=== PATIENT | male | born 1970 | race Caucasian/White ===

== ENCOUNTER 2021-06-06 22:11 | Emergency (ER) | payer OTHER ==
--- NOTE | 2021-06-06 22:53 | ED ---
General Adult HPI - General Chief complaint: Recheck/Abnormal Lab/Rx Stated complaint: Vomiting blood x 4 days Time Seen by Provider: 06/06/21 22:25 Source: patient, family Mode of arrival: wheelchair Limitations: no limitations - History of Present Illness Initial comments: This patient is a 51-year-old man who presents to have evaluation after he had episode of vomiting with some blood. The patient states that he had been out drinking with his son and then had some vomiting. He states that his had him come to the hospital because they noticed some blood. The patient is denying pain area no abdominal or chest pain. No dyspnea. -: hour(s) Severity scale (1-10): 0 Improves with: none Worsens with: none Associated Symptoms: nausea/vomiting Treatments Prior to Arrival: none - Related Data Home Medications Medication Instructions Recorded Confirmed Aspirin EC [Ecotrin Low Dose] 81 mg PO DAILY 06/06/21 06/06/21 Naproxen 500 mg PO BID PRN 06/06/21 06/06/21 Nitroglycerin Sl Tabs [Nitrostat] 0.4 mg PO Q5M PRN 06/06/21 06/06/21 Allergies Allergy/AdvReac Type Severity Reaction Status Date / Time egg Allergy Anaphylaxis Verified 06/06/21 23:27 Review of Systems ROS Statement: Those systems with pertinent positive or pertinent negative responses have been documented in the HPI. ROS Other: All systems not noted in ROS Statement are negative. Constitutional: Denies: fever, chills Respiratory: Denies: cough, dyspnea Cardiovascular: Denies: chest pain, palpitations Gastrointestinal: Reports: nausea, vomiting, hematemesis. Denies: abdominal pain, diarrhea, melena, hematochezia Genitourinary: Denies: dysuria, hematuria Musculoskeletal: Denies: back pain Skin: Denies: rash Neurological: Denies: headache, weakness, numbness Past Medical History Past Medical History: Coronary Artery Disease (CAD) History of Any Multi-Drug Resistant Organisms: None Reported Past Surgical History: Heart Catheterization With Stent Past Psychological History: No Psychological Hx Reported Smoking Status: Current every day smoker Past Alcohol Use History: Occasional Past Drug Use History: None Reported General Exam Limitations: no limitations General appearance: alert, in no apparent distress Head exam: Present: atraumatic, normocephalic Eye exam: Present: normal appearance. Absent: scleral icterus, conjunctival injection ENT exam: Present: normal oropharynx Neck exam: Present: normal inspection Respiratory exam: Present: normal lung sounds bilaterally, rhonchi. Absent: respiratory distress, wheezes, rales, stridor Cardiovascular Exam: Present: regular rate, normal rhythm, normal heart sounds. Absent: systolic murmur, diastolic murmur, rubs, gallop GI/Abdominal exam: Present: soft. Absent: distended, tenderness, guarding, rebound, rigid, mass, pulsatile mass, hernia Extremities exam: Present: normal inspection, normal capillary refill. Absent: pedal edema, calf tenderness Back exam: Present: normal inspection. Absent: CVA tenderness (R), CVA tenderness (L) Neurological exam: Present: alert Skin exam: Present: warm, dry, intact, normal color. Absent: rash Course Vital Signs 06/06/21 06/07/21 06/07/21 22:19 00:00 01:00 Temperature 98.9 F Pulse Rate 97 75 77 Respiratory 19 18 18 Rate Blood Pressure 119/83 94/71 98/68 O2 Sat by Pulse 95 94 L 94 L Oximetry 06/07/21 06/07/21 06/07/21 03:01 05:06 05:46 Temperature Pulse Rate 87 81 95 Respiratory 20 20 20 Rate Blood Pressure 93/64 85/58 102/71 O2 Sat by Pulse 96 95 98 Oximetry 06/07/21 08:04 Temperature 97.8 F Pulse Rate 73 Respiratory 20 Rate Blood Pressure 109/83 O2 Sat by Pulse 100 Oximetry EKG Findings - EKG Comments: EKG Findings:: Possible old lateral infarct. - EKG Results: EKG: interpreted by CASTILLOD, sinus rhythm (Rate 111 bpm) EKG shows: tachycardia - Blocks, [place], Hypertrophy, ST Abn: Chamber hypertrophy or enlargement: left ventricular hypertrophy or enlargement (LVE) Medical Decision Making - Lab Data Result diagrams: 06/06/21 23:02 06/06/21 23:02 Lab Results 06/06/21 06/06/21 06/06/21 Range/Units 22:55 23:00 23:02 WBC 9.9 (3.8-10.6) k/uL RBC 4.99 (4.30-5.90) m/uL Hgb 16.3 (13.0-17.5) gm/dL Hct 49.1 (39.0-53.0) % MCV 98.3 (80.0-100.0) fL MCH 32.7 (25.0-35.0) pg MCHC 33.2 (31.0-37.0) g/dL RDW 11.9 (11.5-15.5) % Plt Count 322 (150-450) k/uL MPV 8.1 Neutrophils % 61 % Lymphocytes % 27 % Monocytes % 6 % Eosinophils % 3 % Basophils % 1 % Neutrophils # 6.1 (1.3-7.7) k/uL Lymphocytes # 2.7 (1.0-4.8) k/uL Monocytes # 0.6 (0-1.0) k/uL Eosinophils # 0.3 (0-0.7) k/uL Basophils # 0.1 (0-0.2) k/uL PT (9.0-12.0) sec INR (<1.2) APTT (22.0-30.0) sec Sodium (137-145) mmol/L Potassium (3.5-5.1) mmol/L Chloride (98-107) mmol/L Carbon Dioxide (22-30) mmol/L Anion Gap mmol/L BUN (9-20) mg/dL Creatinine (0.66-1.25) mg/dL Est GFR (CKD-EPI)AfAm (>60 ml/min/1.73 sqM) Est GFR (CKD-EPI)NonAf (>60 ml/min/1.73 sqM) Glucose (74-99) mg/dL Calcium (8.4-10.2) mg/dL Total Bilirubin (0.2-1.3) mg/dL AST (17-59) U/L ALT (4-49) U/L Alkaline Phosphatase (38-126) U/L Troponin I (0.000-0.034) ng/mL Total Protein (6.3-8.2) g/dL Albumin (3.5-5.0) g/dL Serum Alcohol mg/dL Blood Type B Positive Blood Type Confirm B Positive Blood Type Recheck Bld Type Recheck Status Antibody Screen NEGATIVE Spec Expiration Date 06/06/21 06/06/21 06/06/21 Range/Units 23:02 23:02 23:02 WBC (3.8-10.6) k/uL RBC (4.30-5.90) m/uL Hgb (13.0-17.5) gm/dL Hct (39.0-53.0) % MCV (80.0-100.0) fL MCH (25.0-35.0) pg MCHC (31.0-37.0) g/dL RDW (11.5-15.5) % Plt Count (150-450) k/uL MPV Neutrophils % % Lymphocytes % % Monocytes % % Eosinophils % % Basophils % % Neutrophils # (1.3-7.7) k/uL Lymphocytes # (1.0-4.8) k/uL Monocytes # (0-1.0) k/uL Eosinophils # (0-0.7) k/uL Basophils # (0-0.2) k/uL PT 10.2 (9.0-12.0) sec INR 0.9 (<1.2) APTT 22.3 (22.0-30.0) sec Sodium 140 (137-145) mmol/L Potassium 4.2 (3.5-5.1) mmol/L Chloride 107 (98-107) mmol/L Carbon Dioxide 16 L (22-30) mmol/L Anion Gap 17 mmol/L BUN 10 (9-20) mg/dL Creatinine 0.86 (0.66-1.25) mg/dL Est GFR (CKD-EPI)AfAm >90 (>60 ml/min/1.73 sqM) Est GFR (CKD-EPI)NonAf >90 (>60 ml/min/1.73 sqM) Glucose 108 H (74-99) mg/dL Calcium 8.8 (8.4-10.2) mg/dL Total Bilirubin 0.4 (0.2-1.3) mg/dL AST 29 (17-59) U/L ALT 24 (4-49) U/L Alkaline Phosphatase 108 (38-126) U/L Troponin I <0.012 (0.000-0.034) ng/mL Total Protein 8.4 H (6.3-8.2) g/dL Albumin 4.6 (3.5-5.0) g/dL Serum Alcohol 290 H* mg/dL Blood Type Blood Type Confirm Blood Type Recheck Bld Type Recheck Status Antibody Screen Spec Expiration Date 06/06/21 Range/Units 23:02 WBC (3.8-10.6) k/uL RBC (4.30-5.90) m/uL Hgb (13.0-17.5) gm/dL Hct (39.0-53.0) % MCV (80.0-100.0) fL MCH (25.0-35.0) pg MCHC (31.0-37.0) g/dL RDW (11.5-15.5) % Plt Count (150-450) k/uL MPV Neutrophils % % Lymphocytes % % Monocytes % % Eosinophils % % Basophils % % Neutrophils # (1.3-7.7) k/uL Lymphocytes # (1.0-4.8) k/uL Monocytes # (0-1.0) k/uL Eosinophils # (0-0.7) k/uL Basophils # (0-0.2) k/uL PT (9.0-12.0) sec INR (<1.2) APTT (22.0-30.0) sec Sodium (137-145) mmol/L Potassium (3.5-5.1) mmol/L Chloride (98-107) mmol/L Carbon Dioxide (22-30) mmol/L Anion Gap mmol/L BUN (9-20) mg/dL Creatinine (0.66-1.25) mg/dL Est GFR (CKD-EPI)AfAm (>60 ml/min/1.73 sqM) Est GFR (CKD-EPI)NonAf (>60 ml/min/1.73 sqM) Glucose (74-99) mg/dL Calcium (8.4-10.2) mg/dL Total Bilirubin (0.2-1.3) mg/dL AST (17-59) U/L ALT (4-49) U/L Alkaline Phosphatase (38-126) U/L Troponin I (0.000-0.034) ng/mL Total Protein (6.3-8.2) g/dL Albumin (3.5-5.0) g/dL Serum Alcohol mg/dL Blood Type Blood Type Confirm Blood Type Recheck No Previous Record Bld Type Recheck Status CABO Indicated Antibody Screen Spec Expiration Date 06/09/2021 - 2301 Disposition Clinical Impression: Alcohol intoxication Disposition: HOME SELF-CARE Condition: Fair Instructions (If sedation given, give patient instructions): Alcohol Intoxication (ED) Is patient prescribed a controlled substance at d/c from ED?: No Referrals: Getachew Tinsley MD [STAFF PHYSICIAN] - 1-2 days
--- NOTE | 2021-06-06 23:11 | XR ---
EXAMINATION TYPE: XR chest 1V portable DATE OF EXAM: 06/06/2021 COMPARISON: 11/05/2014 HISTORY: Chest pain TECHNIQUE: Single view FINDINGS: There is mild elevation of the right diaphragm. Heart size is normal. There is no heart [place]. There is poor inspiration. IMPRESSION: There is some mild atelectasis right lung base. No heart failure. Inspiration decreased c ompared to old exam.
[2021-06-06 23:42] LABS: Basophils # (A) 0.1 k/uL (0-0.2); Basophils % (A) 1 %; Eosinophils # (A) 0.3 k/uL (0-0.7); Eosinophils % (A) 3 %; HCT 49.1 % (39.0-53.0); HGB 16.3 gm/dL (13.0-17.5); Lymphocytes # (A) 2.7 k/uL (1.0-4.8); Lymphocytes % (A) 27 %; MCH 32.7 pg (25.0-35.0); MCHC 33.2 g/dL (31.0-37.0); MCV 98.3 fL (80.0-100.0); Mean Platelet Volume 8.1; Monocytes # (A) 0.6 k/uL (0-1.0); Monocytes % (A) 6 %; Neutrophils # (A) 6.1 k/uL (1.3-7.7); Neutrophils % (A) 61 %; Platelet Count 322 k/uL (150-450); RBC 4.99 m/uL (4.30-5.90); RDW 11.9 % (11.5-15.5); WBC 9.9 k/uL (3.8-10.6)
[2021-06-06 23:52] LABS: INR 0.9 (<1.2); Partial Thromboplastin Time 22.3 sec (22.0-30.0); Prothrombin Time 10.2 sec (9.0-12.0)
[2021-06-06 23:57] LABS: ALT 24 U/L (4-49); AST 29 U/L (17-59); African American GFR (CKD) >90 (>60 ml/min/1.73 sqM); Albumin 4.6 g/dL (3.5-5.0); Alkaline Phosphatase 108 U/L (38-126); Blood Urea Nitrogen 10 mg/dL (9-20); Calcium 8.8 mg/dL (8.4-10.2); Carbon Dioxide 16 mmol/L (22-30); Chloride 107 mmol/L (98-107); Glucose 108 mg/dL (74-99); Non-African American GFR(CKD) >90 (>60 ml/min/1.73 sqM); Potassium 4.2 mmol/L (3.5-5.1); Total Bilirubin 0.4 mg/dL (0.2-1.3); Total Protein 8.4 g/dL (6.3-8.2)
[2021-06-07 00:11] LABS: Alcohol 290 mg/dL
[2021-06-07 00:24] LABS: Anion Gap 17 mmol/L; Sodium 140 mmol/L (137-145)
[2021-06-07 03:02] VITALS: RESP 20
[2021-06-07] MEDS ORDERED: SODIUM CHLORIDE 0.9% 1,000 ML IV ONE (05:09)
[2021-06-07 08:04] VITALS: BP 109/83; PULSE 73; TEMP 97.8
== END 2021-06-07 08:15 | disposition home or self-care (01) ==
LOC: EC 22:11
DX: R11.2 Nausea with vomiting, unspecified (principal); M19.90 Unspecified osteoarthritis, unspecified site; F10.129 Alcohol abuse with intoxication, unspecified; F17.200 Nicotine dependence, unspecified, uncomplicated; Z91.012 Allergy to eggs
CPT/HCPCS: 36415; 93005; 86900; 86901; 80053; 84484; 85025; 85610; 85730; 86850; 71045; 99284; G0480; 80320

== ENCOUNTER 2023-06-26 20:42 | Emergency (ER) | payer OTHER ==
[2023-06-26 21:07] VITALS: RESP 18; TEMP 98.7
--- NOTE | 2023-06-26 21:39 | XR ---
EXAMINATION TYPE: XR hand complete LT DATE OF EXAM: 06/26/2023 9:18 PM CLINICAL INDICATION:Male, 53 years old with history of injury; COMPARISON: None TECHNIQUE: XR hand complete LT Frontal, lateral and oblique views were obtained. FINDINGS/IMPRESSION: There is posterior subluxation/dislocation of the fifth digit proximal interphalangeal joint best maeve reciated on lateral view. No evidence of fracture.
[2023-06-26 23:15] VITALS: BP 126/70; PULSE 78
--- NOTE | 2023-06-26 23:27 | ED ---
General Adult HPI - General Chief complaint: Extremity Injury, Upper Stated complaint: Fall, Left Hand Injury Time Seen by Provider: 06/26/23 20:56 Source: family Mode of arrival: ambulatory Limitations: no limitations - History of Present Illness Initial comments: 53-year-old male presents to the ED with a chief complaint of left finger injury. Patient admits that he was outside drinking earlier today. States that while he was drinking he lost his balance and states that he tried to catch himself with his left hand and notes that his hand went through a chain link fence. States that his pinky finger got snagged and now notes injury to this finger. No other injuries at this time. No other complaints. - Related Data Home Medications Medication Instructions Recorded Confirmed Aspirin EC [Ecotrin Low Dose] 81 mg PO DAILY 06/06/21 06/06/21 Naproxen 500 mg PO BID PRN 06/06/21 06/06/21 Nitroglycerin Sl Tabs [Nitrostat] 0.4 mg PO Q5M PRN 06/06/21 06/06/21 Allergies Allergy/AdvReac Type Severity Reaction Status Date / Time egg Allergy Anaphylaxis Verified 06/26/23 20:53 Review of Systems ROS Statement: Those systems with pertinent positive or pertinent negative responses have been documented in the HPI. ROS Other: All systems not noted in ROS Statement are negative. Past Medical History Past Medical History: Coronary Artery Disease (CAD) History of Any Multi-Drug Resistant Organisms: None Reported Past Surgical History: Heart Catheterization With Stent Past Psychological History: No Psychological Hx Reported Smoking Status: Current every day smoker Past Alcohol Use History: Occasional Past Drug Use History: None Reported General Exam Limitations: no limitations General appearance: alert, in no apparent distress Neck exam: Present: normal inspection Respiratory exam: Present: normal lung sounds bilaterally Cardiovascular Exam: Present: regular rate, normal rhythm GI/Abdominal exam: Present: soft Extremities exam: Present: other (Drink and sensation equal and intact in bilateral upper extremities. Patient does have an obvious deformity to the left fifth finger. Neurovascularly intact.) Neurological exam: Present: alert, oriented X3 Skin exam: Present: warm, dry Course Vital Signs 06/26/23 06/26/23 20:50 22:30 Temperature 98.7 F Pulse Rate 70 78 Respiratory 18 18 Rate Blood Pressure 121/87 126/70 O2 Sat by Pulse 100 98 Oximetry Procedures - Orthopedic Joint Reduction Joint #1 Side: left Joint Reduction Location: finger Technique Used: direct manipulation Post-Reduction Neuro Exam: intact Post-Reduction Vascular Exam: intact Post Reduction X-Ray Obtained: Yes Post Reduction X-Ray Results: reduced Splint Applied: Yes Patient Tolerated Procedure: well, no complications Medical Decision Making - Medical Decision Making Was pt. sent in by a medical professional or institution (, PA, GIS SOFTWARE ENGINEER, urgent care, hospital, or retirement...) When possible be specific @ -No Did you speak to anyone other than the patient for history (EMS, parent, family, police, friend...)? What history was obtained from this source @ -No Did you review nursing and triage notes (agree or disagree)? Why? @ -I reviewed and agree with nursing and triage notes Were old charts reviewed (outside hosp., previous admission, EMS record, old EKG, old radiological studies, urgent care reports/EKG's, retirement records)? Report findings @ -No old charts were reviewed Differential Diagnosis (chest pain, altered mental status, abdominal pain women, abdominal pain men, vaginal bleeding, weakness, fever, dyspnea, syncope, headache, dizziness, GI bleed, back pain, seizure, CVA, palpatations, mental health, musculoskeletal)? @ -Differential Musculoskeletal Muscular strain, contusion, ligament sprain, fracture, arthritis, septic arthritis, bursitis, cellulitis, muscle spasm, nerve compression, DVT, arterial occlusion, herpes zoster, electrolyte abnormality, tumor.... This is not meant to be in all inclusive list EKG interpreted by me (3pts min.). @ -As above X-rays interpreted by me (1pt min.). @ -X-ray interpreted by me showing dislocation of the left fifth finger. Repeat x-ray shows successful reduction. CT interpreted by me (1pt min.). @ -None done U/S interpreted by me (1pt. min.). @ -None done What testing was considered but not performed or refused? (CT, X-rays, U/S, labs)? Why? @ -None What meds were considered but not given or refused? Why? @ -None Did you discuss the management of the patient with other professionals (professionals i.e. , RONIT, GIS SOFTWARE ENGINEER, lab, RT, psych nurse, clinical social work therapist, personalized living assistant, teacher, amphibious operations officer, ed case manager)? Give summary @ -No Was smoking cessation discussed for >3mins.? @ -No Was critical care preformed (if so, how long)? @ -No Were there social determinants of health that impacted care today? How? (Homelessness, low income, unemployed, alcoholism, drug addiction, transportation, low edu. Level, literacy, decrease access to med. care, correction, rehab)? @ -No Was there de-escalation of care discussed even if they declined (Discuss DNR or withdrawal of care, Hospice)? DNR status @ -No What co-morbidities impacted this encounter? (DM, HTN, Smoking, COPD, CAD, Cancer, CVA, ARF, Chemo, Hep., AIDS, mental health diagnosis, sleep apnea, morbid obesity)? @ -None Was patient admitted / discharged? Hospital course, mention meds given and route, prescriptions, significant lab abnormalities, going to OR and other pertinent info. @ -Discharge 53-year-old male presents to the ED with a left fifth finger injury. X-ray did show a dislocated left fifth finger. This was reduced. For further details please see procedure note. Patient discharged home in stable condition. Will follow up with orthopedics on an outpatient basis. Discussed return precautions with patient verbalizes agreement. Undiagnosed new problem with uncertain prognosis? @ -No Drug Therapy requiring intensive monitoring for toxicity (Heparin, Nitro, Insulin, Cardizem)? @ -No Were any procedures done? @ -No Diagnosis/symptom? @ -Left fifth finger dislocation Acute, or Chronic, or Acute on Chronic? @ -Acute Uncomplicated (without systemic symptoms) or Complicated (systemic symptoms)? @ -Uncomplicated Side effects of treatment? @ -No Exacerbation, Progression, or Severe Exacerbation? @ -No Poses a threat to life or bodily function? How? (Chest pain, [place], [place], pneumonia, PE, COPD, DKA, ARF, appy, cholecystitis, CVA, Diverticulitis, Homicidal, Suicidal, threat to staff... and all critical care pts) @ -No Disposition Clinical Impression: Dislocation of fifth finger, metacarpal joint, proximal, left, closed Disposition: HOME SELF-CARE Condition: Good Additional Instructions: Please return to the Emergency Department if symptoms worsen or any other concerns. Please follow-up with orthopedics. Is patient prescribed a controlled substance at d/c from ED?: No Referrals: Hamilton,Rebekah, DO [Primary Care Provider] - 1-2 days Иван Fisher DO [Doctor of Osteopathic Medicine] - 1-2 days Time of Disposition: 23:31
--- NOTE | 2023-06-27 01:05 | XR ---
EXAM: XR Left Fingers, 2 or More Views CLINICAL HISTORY: ITS.REASON XR Reason: L 5th finger postreduction TECHNIQUE: Frontal, lateral and oblique views of the fingers of the left hand. COMPARISON: No relevant prior studies available. FINDINGS: Bones/joints: Unremarkable. No acute fracture. No dislocation. Soft tissues: Unremarkable. No radiopaque foreign body. IMPRESSION: Normal x-rays of the visualized left fingers.
== END 2023-06-26 23:43 | disposition home or self-care (01) ==
LOC: EC 20:42
DX: S63.287A Dislocation of proximal interphalangeal joint of left little finger, initial encounter (principal); I25.10 Atherosclerotic heart disease of native coronary artery without angina pectoris; F17.200 Nicotine dependence, unspecified, uncomplicated; Z91.012 Allergy to eggs; Z79.899 Other long term (current) drug therapy; Z79.82 Long term (current) use of aspirin; W18.30XA Fall on same level, unspecified, initial encounter
CPT/HCPCS: 26770; 99284

== ENCOUNTER 2023-09-04 09:10 | Emergency (ER) | payer OTHER ==
[2023-09-04 09:36] VITALS: RESP 18
[2023-09-04] MEDS ORDERED: LIDOCAINE 4% PATCH TOPICAL ONE (09:40)
[2023-09-04] MEDS ORDERED: KETOROLAC 15 MG/ML 1 ML VIAL IM STA (09:40)
--- NOTE | 2023-09-04 11:29 | XR ---
EXAMINATION TYPE: XR ribs LT w pa chest xray DATE OF EXAM: 09/04/2023 COMPARISON: Chest x-ray 06/06/2021 HISTORY: Fall, left rib pain TECHNIQUE: AP chest, 2 views left RIBS FINDINGS: No acute left rib fractures are identified. No pneumothorax is evident. Heart size is normal. Pulmonary vasculature is normal. Minimal plate atelectasis may be at the left b ase. IMPRESSION: 1. No acute left rib fractures identified. Follow-up can be performed as clinically indicated. 2. Minimal plate atelectasis left lung base.
[2023-09-04 12:08] VITALS: BP 132/79; PULSE 71; TEMP 98.7
--- NOTE | 2023-09-04 12:10 | ED ---
General Adult HPI - General Chief complaint: Fall Stated complaint: rib pain Time Seen by Provider: 09/04/23 09:15 Source: patient Mode of arrival: ambulatory Limitations: no limitations - History of Present Illness Initial comments: 53-year-old male presents to the emergency department reporting left chest wall pain. States that on he was hanging out with one of his friends who is an amputee. He got significantly intoxicated and fell over a railing onto a set of trash cans. When the patient went to help him stand up a second friend fell on top of him and the patient fell onto the concrete steps. He has been having left-sided chest wall pain since the incident happened but has been unable to have any evaluation performed. He denies any shortness of breath. No cough. No fevers. He does not take anything at home for the pain. Denies head injury. No neck or back pain. No other alleviating, precipitating or modifying factors - Related Data Home Medications Medication Instructions Recorded Confirmed Aspirin EC [Ecotrin Low Dose] 81 mg PO DAILY 06/06/21 06/06/21 Naproxen 500 mg PO BID PRN 06/06/21 06/06/21 Nitroglycerin Sl Tabs [Nitrostat] 0.4 mg PO Q5M PRN 06/06/21 06/06/21 Previous Rx's Medication Instructions Recorded HYDROcodone/APAP 5-325MG [[place] 1 tab PO Q8HR PRN 3 Days #18 tab 09/04/23 5-325] Ketorolac [Toradol] 10 mg PO Q8HR #15 tab 09/04/23 Lidocaine 5% Patch [Lidoderm 5% 1 patch TOPICAL DAILY #30 patch 09/04/23 Patch] Allergies Allergy/AdvReac Type Severity Reaction Status Date / Time egg Allergy Anaphylaxis Verified 09/04/23 09:17 Review of Systems ROS Statement: Those systems with pertinent positive or pertinent negative responses have been documented in the HPI. ROS Other: All systems not noted in ROS Statement are negative. Past Medical History Past Medical History: Coronary Artery Disease (CAD) History of Any Multi-Drug Resistant Organisms: None Reported Past Surgical History: Heart Catheterization With Stent Past Psychological History: No Psychological Hx Reported Smoking Status: Current every day smoker Past Alcohol Use History: Occasional Past Drug Use History: None Reported General Exam Limitations: no limitations General appearance: alert, in no apparent distress Head exam: Present: atraumatic, normocephalic, normal inspection Eye exam: Present: normal appearance, PERRL, EOMI. Absent: scleral icterus, conjunctival injection, periorbital swelling ENT exam: Present: normal exam, mucous membranes moist Neck exam: Present: normal inspection. Absent: tenderness, meningismus, lymphadenopathy Respiratory exam: Present: normal lung sounds bilaterally, chest wall tenderness (left side). Absent: respiratory distress, wheezes, rales, rhonchi, stridor Cardiovascular Exam: Present: regular rate, normal rhythm, normal heart sounds. Absent: systolic murmur, diastolic murmur, rubs, gallop, clicks GI/Abdominal exam: Present: soft, normal bowel sounds. Absent: distended, tenderness, guarding, rebound, rigid Extremities exam: Present: normal inspection, full ROM, normal capillary refill. Absent: tenderness, pedal edema, joint swelling, calf tenderness Back exam: Present: normal inspection Neurological exam: Present: alert, oriented X3, CN II-XII intact Psychiatric exam: Present: normal affect, normal mood Skin exam: Present: warm, dry, intact, normal color. Absent: rash Course Vital Signs 09/04/23 09/04/23 09/04/23 09:13 11:51 12:20 Temperature 98.2 F 98.7 F 98.7 F Pulse Rate 92 71 71 Respiratory 18 18 18 Rate Blood Pressure 144/94 132/79 132/79 O2 Sat by Pulse 100 98 98 Oximetry Medical Decision Making - Medical Decision Making Was pt. sent in by a medical professional or institution (, PA, MUD ANALYSIS SUPERVISOR, urgent care, hospital, or assisted...) When possible be specific @ -No Did you speak to anyone other than the patient for history (EMS, parent, family, police, friend...)? What history was obtained from this source @ -No Did you review nursing and triage notes (agree or disagree)? Why? @ -I reviewed and agree with nursing and triage notes Were old charts reviewed (outside hosp., previous admission, EMS record, old EKG, old radiological studies, urgent care reports/EKG's, assisted records)? Report findings @ -No old charts were reviewed Differential Diagnosis (chest pain, altered mental status, abdominal pain women, abdominal pain men, vaginal bleeding, weakness, fever, dyspnea, syncope, headache, dizziness, GI bleed, back pain, seizure, CVA, palpatations, mental health, musculoskeletal)? @ -Differential Chest Pain: Stable Angina, Unstable Angina, STEMI, NSTEMI Aortic Dissection, Pneumothorax, Musculoskeletal, Esophageal Spasm GERD, Cholecystitis, Pancreatitis, Zoster, this is not meant to be an all-inclusive list. EKG interpreted by me (3pts min.). @ -Not done X-rays interpreted by me (1pt min.). @ -Yes and demonstrates no acute fracture CT interpreted by me (1pt min.). @ -None done U/S interpreted by me (1pt. min.). @ -None done What testing was considered but not performed or refused? (CT, X-rays, U/S, labs)? Why? @ -None What meds were considered but not given or refused? Why? @ -Pain meds were offered however patient refused Did you discuss the management of the patient with other professionals (professionals i.e. , PA, MUD ANALYSIS SUPERVISOR, lab, RT, psych nurse, group social worker, child care coordinator, teacher, promotions officer, manager rn case)? Give summary @ -No Was smoking cessation discussed for >3mins.? @ -No Was critical care preformed (if so, how long)? @ -No Were there social determinants of health that impacted care today? How? (Homelessness, low income, unemployed, alcoholism, drug addiction, transportation, low edu. Level, literacy, decrease access to med. care, senior living, rehab)? @ -No Was there de-escalation of care discussed even if they declined (Discuss DNR or withdrawal of care, Hospice)? DNR status @ -No What co-morbidities impacted this encounter? (DM, HTN, Smoking, COPD, CAD, Cancer, CVA, ARF, Chemo, Hep., AIDS, mental health diagnosis, sleep apnea, morbid obesity)? @ -None Was patient admitted / discharged? Hospital course, mention meds given and route, prescriptions, significant lab abnormalities, going to OR and other pertinent info. @ -Upon arrival patient was placed into room 29. There are history of physical exam was performed. He was given a dose of Toradol and a Lidoderm patch was placed to the site. He is sent for chest x-ray which symmetries no acute fractures. Results are discussed patient. There is concern for intercostal strain. Patient will be prescribed Toradol for daytime pain, [place] only to be used as nighttime pain medication. I will additionally prescribed Lidoderm patches. He is to follow-up with Dr. perez for any new or worsening symptoms. Patient was agreeable to the plan and was discharged in stable condition Undiagnosed new problem with uncertain prognosis? @ -yes Drug Therapy requiring intensive monitoring for toxicity (Heparin, Nitro, Insuli n, Cardizem)? @ -No Were any procedures done? @ -No Diagnosis/symptom? @ -Acute fall, left chest wall pain Acute, or Chronic, or Acute on Chronic? @ -acute Uncomplicated (without systemic symptoms) or Complicated (systemic symptoms)? @ -complicated Side effects of treatment? @ -No Exacerbation, Progression, or Severe Exacerbation? @ -No Poses a threat to life or bodily function? How? (Chest pain, [place], [place], pneumonia, PE, COPD, DKA, ARF, appy, cholecystitis, CVA, Diverticulitis, Homicidal, Suicidal, threat to staff... and all critical care pts) @ -No Disposition Clinical Impression: Fall, Left-sided chest wall pain Disposition: HOME SELF-CARE Condition: Stable Instructions (If sedation given, give patient instructions): Chest Wall Pain (ED) Additional Instructions: Use the Toradol during the day. Take the [place] at night. If the pain patches are extensive, please buy [id number] Aspercreme patches as they are comparable. Follow-up with your doctor return for any new or worsening symptoms Prescriptions: Lidocaine 5% Patch [Lidoderm 5% Patch] 1 patch TOPICAL DAILY #30 patch HYDROcodone/APAP 5-325MG [[place] 5-325] 1 tab PO Q8HR PRN 3 Days #18 tab PRN Reason: Severe Breakthrough Pain Ketorolac [Toradol] 10 mg PO Q8HR #15 tab Is patient prescribed a controlled substance at d/c from ED?: Yes When asked, does pt state using other controlled substances?: No If prescribed controlled substance>3 days was MAPS reviewed?: Prescribed <3 Days If opioid is for acute pain is fill amount 7 days or less?: Yes Referrals: Rebekah Hamilton DO [Primary Care Provider] - 1-2 days Time of Disposition: 12:10
== END 2023-09-04 12:20 | disposition home or self-care (01) ==
LOC: EC 09:10
DX: R07.89 Other chest pain (principal); I25.10 Atherosclerotic heart disease of native coronary artery without angina pectoris; F17.200 Nicotine dependence, unspecified, uncomplicated; Z95.5 Presence of coronary angioplasty implant and graft; Z91.012 Allergy to eggs; Z79.82 Long term (current) use of aspirin; Z79.899 Other long term (current) drug therapy; W10.9XXA Fall (on) (from) unspecified stairs and steps, initial encounter
CPT/HCPCS: 71101; 99283; 96372; J1885